=== PATIENT | female | born 1930 | race Caucasian/White ===

== ENCOUNTER 2016-12-11 19:05 | Inpatient (IN) | payer OTHER ==
[~2016-12-11] VITALS: Ht 170.2 cm; Wt 52.8 kg
[~2016-12-11 19:05] MED LIST: ALENDRONATE SODIUM PO; ARICEPT PO; ARICEPT10 MG PO; ASPIRIN PO; ASPIRIN81 M1 PO; BETIMOL 0.100 DROP/5 BOTH EYES; BUSPIRONE HCL10 MG PO; CALTRATE 600 +1 EACH PO; CRANBERRY400 MG PO; CYSTEX TABLET1 EAC1 PO; Combivent IH; DIOVAN; DIOVAN320 MG PO; DIOVAN80 MG PO; ESTRACE42.5 GM VG; Estrace VG; FOSAMAX70 MG PO; LATANOPROST2.5 ML BOTH EYES; LORAZEPAM0.5 MG PO; LOSARTAN POTASS50 MG PO; LUMIGAN 0.50 DROP/2. BOTH EYES; METHENAMINE HIPP1 G1 PO; MULTIVITAMIN1 EAC2 PO; PERCOCET 5/31 TABLET PO; PHENAZOPYRIDIN100 MG PO; POLYETHYLENE GL17 GM PO; REMERON30 M2 PO; SENOKOT8.6 MG PO; THERACRAN650 MG PO; TIMOLOL BOTH EYES; TYLENOL REGULA325 MG PO; UROQID-ACID1 TABLET PO
[2016-12-11] MEDS ORDERED: LASIX20 MG/2 ML IM (19:41)
[2016-12-11] MEDS ORDERED: ARICEPT5 MG PO (19:42)
[2016-12-11] MEDS ORDERED: BUSPAR5 MG PO (19:45)
[2016-12-11] MEDS ORDERED: CRANBERRY425 MG PO (19:46)
[2016-12-11 19:47] LABS: CHLORIDE 121 mEq/L (99-109)
[2016-12-11] MEDS ORDERED: DEPAKOTE125 MG PO (19:47)
[2016-12-11 19:48] LABS: POTASSIUM 4.7 mEq/L (3.7-5.4)
[2016-12-11 19:50] LABS: GLUCOSE 151 mg/dL (70-99); HEMATOCRIT 43.3 % (36.0-46.0); MCH 35.3 PG (29.0-34.0); MCHC 31.6 G/DL (30.0-36.0); MCV 111.6 FL (83-99); MEAN PLAT.VOLUME 10.4 uM^3 (9.5-12.4); PLATELET COUNT 270 K/uL (156-360); RBC DIS.WIDTH-CV 14.3 % (11.8-14.6); RBC DIS.WIDTH-SD 56.2 % (39-53); RED BLOOD COUNT 3.88 M/uL (3.80-5.20); WHITE BLOOD COUNT 24.9 K/uL (4.1-10.2)
[2016-12-11 19:51] LABS: ANION GAP 17 MEQ/L (2-14)
[2016-12-11] MEDS ORDERED: COZAAR25 MG PO (19:51)
[2016-12-11 19:52] LABS: TOTAL BILIRUBIN 0.7 mg/dL (0.0-1.0)
[2016-12-11] MEDS ORDERED: REFRESH TEARS15 ML BOTH EYES (19:52)
[2016-12-11 19:53] LABS: ALKALINE PHOSPHATASE 72 IU/L (3-129)
[2016-12-11] MEDS ORDERED: MIRTAZAPINE7.5 MG PO (19:53)
[2016-12-11 19:54] LABS: GFR ESTIMATE (CALCULATED) 19 mL/min/
[2016-12-11] MEDS ORDERED: SENNA PLUS TAB1 EACH PO (19:54)
[2016-12-11 19:55] LABS: UREA NITROGEN (BUN) 62 mg/dL (9-23)
[2016-12-11] MEDS ORDERED: TAMIFLU30 MG PO (19:55)
[2016-12-11] MEDS ORDERED: TUMS500 MG PO (19:58)
[2016-12-11] MEDS ORDERED: DUONEB 2.5-0.5 M3 ML AEROSOL (19:59)
[2016-12-11] MEDS ORDERED: DULCOLAX10 MG PR (20:01)
[2016-12-11] MEDS ORDERED: MILK OF MAGN PO (20:02)
[2016-12-11] MEDS ORDERED: BENADRYL ITCH28.3 GM TP (20:03)
[2016-12-11] MEDS ORDERED: SILVADENE20 GM TP (20:05)
[2016-12-11 20:14] LABS: SODIUM 162 mEq/L (136-147)
[2016-12-11 20:22] LABS: TROP-I INTERPRETATION NEGATIVE; TROPONIN-I 0.09 ng/mL (0.0-0.30)
[2016-12-11 20:34] LABS: ADD MIUA? YES; COLOR YELLOW ((YELLOW)); LEUKOCYTES MODERATE; NITRITE NEGATIVE
[2016-12-11 20:35] LABS: BILIRUBIN NEGATIVE; BLOOD LARGE; GLUCOSE (STRIP) NEGATIVE; KETONES NEGATIVE; PROTEIN (STRIP) 300; UROBILINOGEN 0.2 MG/DL (0.2-1.0)
[2016-12-11 20:47] LABS: RED BLOOD CELLS TNTC /HPF (0-5); UCUL ADDED? YES; WHITE BLOOD CELLS TNTC /HPF (0-5)
[2016-12-11 20:52] LABS: INFLUENZA A VIRAL ANTIGEN NEGATIVE; INFLUENZA B VIRAL ANTIGEN NEGATIVE
[2016-12-11 21:00] LABS: EOSINOPHIL (%) 0 % (0-5); HEMATOLOGY COMMENT 1 SMEAR COMPATIBLE; IMMATURE GRANULOCYTE (%) 0.6 % (0.0-0.7); IMMATURE GRANULOCYTE COUNT 1.4 K/uL; LYMPHOCYTE COUNT 1.1 K/uL (1.0-2.8); MONOCYTE (%) 4.3 % (3-12); MONOCYTE COUNT 1.1 K/uL (0-0.8); NEUTROPHIL (%) 90.7 % (45-76); NEUTROPHIL COUNT 22.5 K/uL (1.8-6.4); PLAT.SUFFICIENCY ADEQUATE; USER ID WCD
[2016-12-12 00:10] VITALS: BP 72/46
[2016-12-12 07:40] VITALS: BP 92/42
[2016-12-14 21:30] VITALS: BP 00/00
== END 2016-12-15 12:37 | DRG 871 ==
LOC: EME → EDBD 19:05 → EDOF 22:05 → 5EAST 22:05
PROVIDERS: Emergency Medicine
DX: A41.9 Sepsis, unspecified organism (principal); J96.90 Respiratory failure, unspecified, unspecified whether with hypoxia or hypercapnia; R65.21 Severe sepsis with septic shock; J18.9 Pneumonia, unspecified organism; N39.0 Urinary tract infection, site not specified; J44.9 Chronic obstructive pulmonary disease, unspecified; I95.9 Hypotension, unspecified; E86.0 Dehydration; N28.9 Disorder of kidney and ureter, unspecified; I10 Essential (primary) hypertension; E78.5 Hyperlipidemia, unspecified; F03.90 Unspecified dementia, unspecified severity, without behavioral disturbance, psychotic disturbance, mood disturbance, and anxiety; Z90.49 Acquired absence of other specified parts of digestive tract
CPT/HCPCS: 71010; 80053; 81003; 83605; 83880; 84484; 85025; 87040; 87077; 87086; 87186; 87502; 93005; 94640; 94640 76; 94799; 99202; 99281; 99285; C9113; J1335; J2270; J2543; J3370; J7030; J7050